=== PATIENT | female | born 1995 | race Caucasian/White ===

== ENCOUNTER → 2016-12-23 | Outpatient (CLI) | payer OTHER ==
[~2016-12-23] MED LIST: FERR325T3 PO; MOTR200T44 PO; PERC5TAB6 PO
--- NOTE | 2016-12-23 14:02 | REP ---
OBSTETRIC SONOGRAPHY: HISTORY: Supervision of for anatomy. FINDINGS: Scanning through the gravid uterus demonstrates a viable single intrauterine gestation in a breech lie. motion is observed and heart rate is recorder 137 beats per minute. An anterior grade 0 placenta is seen without evidence of previa or abruption. Amniotic fluid is subjectively normal. Closed cervical length is 3.5 cm. No extrauterine abnormality is observed. No anomaly is seen. Sagittal visualization of the spine is less than optimally seen today due to position. The following anatomic structures are identified and felt to be sonographically unremarkable: cranium, choroid plexus, cavum, cerebellum and posterior fossa, face and profile, lungs, four-chamber heart with left and right ventricular outflow tract views, diaphragm, left-sided stomach, abdominal wall cord insertion, three-vessel umbilical cord, kidneys and bladder, upper and lower extremities. Biometry Chart: BPD 4.5 cm = 19 weeks 5 days HC 17.1 cm = 19 weeks 5 days AC 14.4 cm = 19 weeks 5 days FL 3.1 cm = 19 weeks 5 days HL 3.0 cm = 19 weeks 6 days HC/AC ratio normal 1.19. Cephalic index normal 0.73. Estimated weight 308 grams, 0 pounds 10 ounces, 57th percentile for 19 weeks 3 days. IMPRESSION: Viable single intrauterine gestation at 19 weeks 5 days by today's composite sonographic criteria. AMEYA by today's sonography May 14, 2017. spine less than completely visualized due to position. Signed by Gunnar Briseno MD 12/23/2016 02:07 P
== END ==
LOC: M RAD 09:46
PROVIDERS: ATTEND Specialist
DX: Z36 Encounter for antenatal screening of mother (principal)

== ENCOUNTER → 2017-01-14 | Outpatient (CLI) | payer OTHER ==
--- NOTE | 2017-01-14 10:55 | REP ---
Clinical: Anatomical evaluation. Comparison: 12/23/2016. Findings: Examination demonstrates a single live intrauterine in cephalic presentation. motion is identified by technologist. Placenta is noted anteriorly and grade one without evidence for placenta previa or abruption; few small placental venous lakes are noted. Amniotic fluid volume is normal. Cervix measures 4.9 cm in length and appears closed. No evidence for nuchal cord. Gestational age by LMP 22 weeks 4 days with AMEYA 05/16/2017 . Gestational age by current measurements 23 weeks 2 days with AMEYA 05/11/2017 . FHR equals 131 beats per minute. Estimated weight 613 grams ( 79th percentile). Anatomical assessment demonstrates normal structures including cranium, choroid plexus, cavum, cerebellum/posterior fossa, facial features, lungs, four-chamber heart/ventricular outflow tracts, diaphragm, stomach, cord insertion/three-vessel cord, kidneys/bladder, spine, and extremities. Impression: 1. Single live intrauterine in cephalic presentation demonstrating appropriate interval growth. 2. In conjunction with prior examination anatomical assessment is complete and normal. Signed by Mc Mujica MD 01/14/2017 10:46 A
== END ==
LOC: M RAD 09:36
PROVIDERS: ATTEND Specialist
DX: Z36 Encounter for antenatal screening of mother (principal)

== ENCOUNTER → 2017-01-29 | Outpatient (REF) | payer OTHER | LOC: M LAB REF 12:54 | PROVIDERS: ATTEND Obstetrics & Gynecology | DX: R30.0 Dysuria (principal) ==

== ENCOUNTER → 2017-02-26 | Outpatient (CLI) | payer OTHER ==
[2017-02-26 13:18] LABS: BASO # 0.1 K/mm3 (0.0-0.2); BASO % 0.6 % (0.0-1.0); EOS # 0.2 K/mm3 (0.0-0.50); EOS % 2.5 % (0.0-3.0); LARGE UNSTAINED CELL # 0.2 K/mm3 (0.0-0.4); LARGE UNSTAINED CELL % 2.1 % (0.0-4.0); LYMPH # 1.8 K/mm3 (1.5-6.5); MEAN CORPUSCULAR HEMOGLOBIN 30.3 pg (27.0-33.0); MEAN CORPUSCULAR HGB CONC 34.2 g/dl (32.0-36.5); MEAN CORPUSCULAR VOLUME 88.6 fl (80.0-96.0); MONO # 0.5 K/mm3 (0.0-0.8); MONO % 5.3 % (0.0-5.0); NEUTROPHILS # 7.2 K/mm3 (1.8-7.7); NEUTROPHILS % 71.5 % (36.0-66.0); PLATELET COUNT, AUTOMATED 175 k/mm3 (150-450); RED CELL DISTRIBUTION WIDTH 13.2 % (11.5-14.5); WHITE BLOOD COUNT 10.1 K/mm3 (4.0-10.0)
== END ==
LOC: M LAB 11:05
PROVIDERS: ATTEND Specialist
DX: Z34.82 Encounter for supervision of other normal pregnancy, second trimester (principal)

== ENCOUNTER 2017-04-14 17:49 | Outpatient (CLI) | payer OTHER ==
[~2017-04-14] VITALS: Ht 160 cm; Wt 65.0 kg
[2017-04-14 18:42] VITALS: BP 115/64
[2017-04-14] MEDS ORDERED: ZOFR20TA PO (18:59)
[2017-04-14] MEDS ORDERED: ZOLO25TA PO (18:59)
[2017-04-14] MEDS ORDERED: PRENTAB9 PO (18:59)
[2017-04-14] MEDS ORDERED: ACET50TA PO (18:59)
[2017-04-14] MEDS ORDERED: ONDANSETRON 4MG/2ML VIAL (J2405) IV PRN (19:15)
[2017-04-14] MEDS ORDERED: D5W/LR 1,000 ML IV SCH (19:15)
[2017-04-14 19:56] VITALS: BP 110/59
[2017-04-14 20:19] LABS: MEAN CORPUSCULAR HEMOGLOBIN 28.6 pg (27.0-33.0); MEAN CORPUSCULAR HGB CONC 33.5 g/dl (32.0-36.5); MEAN CORPUSCULAR VOLUME 85.4 fl (80.0-96.0); RED CELL DISTRIBUTION WIDTH 13.3 % (11.5-14.5); WHITE BLOOD COUNT 9.9 K/mm3 (4.0-10.0)
[2017-04-14 20:30] LABS: ALBUMIN/GLOBULIN RATIO 0.83 (1.00-1.93); ALKALINE PHOSPHATASE 158 U/L (45-117); ALT/SGPT 27 U/L (12-78); ANION GAP 12 MEQ/L (8-16); AST/SGOT 41 U/L (15-37); BILIRUBIN,TOTAL 0.4 MG/DL (0.2-1.0); BLOOD UREA NITROGEN 10 MG/DL (7-18); CALCIUM LEVEL 7.9 MG/DL (8.5-10.1); CARBON DIOXIDE LEVEL 22 MEQ/L (21-32); CHLORIDE LEVEL 102 MEQ/L (98-107); CREATININE FOR GFR 0.51 MG/DL (0.55-1.02); GLOMERULAR FILTRATION RATE > 60.0 (>60); GLUCOSE, FASTING 54 MG/DL (70-105); POTASSIUM SERUM 3.5 MEQ/L (3.5-5.1); SODIUM LEVEL 136 MEQ/L (136-145); TOTAL PROTEIN 6.6 GM/DL (6.4-8.2)
[2017-04-14] MEDS ORDERED: ACETAMINOPHEN 500 MG TAB PO PRN (20:30)
[2017-04-14 21:34] VITALS: BP 106/59
[2017-04-14 22:33] VITALS: BP 103/58
[2017-04-14 23:19] VITALS: BP 107/56
[2017-04-15] VITALS: BP 111/59
[2017-04-15] MEDS ORDERED: ZOFR4TAB3 PO (00:10)
== END 2017-04-15 00:10 | disposition home or self-care (01) ==
LOC: M LDO 17:49
PROVIDERS: ATTEND Obstetrics & Gynecology
DX: O99.89 Other specified diseases and conditions complicating pregnancy, childbirth and the puerperium (principal); Z3A.35 35 weeks gestation of pregnancy; O21.9 Vomiting of pregnancy, unspecified; K52.9 Noninfective gastroenteritis and colitis, unspecified; A08.4 Viral intestinal infection, unspecified; O99.613 Diseases of the digestive system complicating pregnancy, third trimester
CPT/HCPCS: 59025; 80053; 81001; 85027; 87088; J2405

== ENCOUNTER → 2017-04-21 | Outpatient (REF) | payer OTHER ==
[~2017-04-21] MED LIST changes: +ACET50TA PO; +PRENTAB9 PO; +ZOFR20TA PO; +ZOFR4TAB3 PO; +ZOLO25TA PO
== END ==
LOC: M LAB REF 13:09
PROVIDERS: ATTEND Advanced Practice Midwife
DX: Z34.83 Encounter for supervision of other normal pregnancy, third trimester (principal)

== ENCOUNTER 2017-05-12 05:37 | Inpatient (IN) | payer OTHER ==
[~2017-05-12] VITALS: Ht 157.5 cm; Wt 70.0 kg
[2017-05-12] VITALS (10 sets, daily range): BP systolic 106–126; BP diastolic 55–77
[~2017-05-12 05:37] MED LIST changes: +TYLE325C PO; +VALA500T PO
[2017-05-12] MEDS ORDERED: LR 1,000 ML IV ONE (07:30)
[2017-05-12] MEDS ORDERED: LR 1,000 ML IV SCH (07:30)
[2017-05-12] MEDS ORDERED: BICITRA 30ML SOLN UDC PO ONE (07:30)
[2017-05-12 07:32] LABS: MEAN CORPUSCULAR HEMOGLOBIN 26.6 pg (27.0-33.0); MEAN CORPUSCULAR HGB CONC 31.9 g/dl (32.0-36.5); MEAN CORPUSCULAR VOLUME 83.4 fl (80.0-96.0); RED CELL DISTRIBUTION WIDTH 14.1 % (11.5-14.5); WHITE BLOOD COUNT 10.4 K/mm3 (4.0-10.0)
[2017-05-12] MEDS ORDERED: PHENYLephrine HCL 500 MCG/5 ML (100MCG/ML) SYRINGE (J2370) As Ordered ONE ×2 (08:03→08:32)
[2017-05-12] MEDS ORDERED: ePHEDrine SULFATE 25 MG/5 ML(5MG/ML) SYRINGE As Ordered ONE ×2 (08:03→08:31)
[2017-05-12] MEDS ORDERED: ONDANSETRON 4MG/2ML VIAL (J2405) As Ordered ONE (08:03)
[2017-05-12] MEDS ORDERED: MORPHINE PRES-FREE INJ 10 MG/10 ML VIAL (J2274) As Ordered ONE (08:03)
[2017-05-12] MEDS ORDERED: NALOXONE INJ 0.4 MG/1 ML VIAL (J2310) IV PRN ×2 (08:19)
[2017-05-12] MEDS ORDERED: NALBUPHINE HCL 10 MG/ML AMP (J2300) IV PRN (08:19)
[2017-05-12] MEDS ORDERED: ONDANSETRON 4MG/2ML VIAL (J2405) IV PRN ×3 (08:19→09:45)
[2017-05-12] MEDS ORDERED: METOCLOPRAMIDE INJ 10MG/2ML VIAL (J2765) IV PRN (08:19)
[2017-05-12] MEDS ORDERED: MIDAZOLAM INJ 2 MG/2 ML VIAL (J2250) As Ordered ONE (08:23)
[2017-05-12] MEDS ORDERED: KETOROLAC 60 MG/2 ML VIAL (J1885) As Ordered ONE (08:37)
[2017-05-12] MEDS ORDERED: OXYTOCIN INJ 10 UNITS/ML VIAL (J2590) As Ordered ONE (08:49)
[2017-05-12] MEDS ORDERED: PROMETHAZINE 25 MG TAB PO PRN (09:00)
[2017-05-12] MEDS ORDERED: MEASLES,MUMPS,RUBELLA VACCINE INJ (MMR-II) (90707) SC SCH (09:00)
[2017-05-12] MEDS: PRENATAL VITAMIN TAB PO SCH (09:00)
[2017-05-12] MEDS: DOCUSATE SODIUM 100 MG CAP PO SCH ×2 (09:00→21:17)
[2017-05-12] MEDS ORDERED: RHOGAM 300 MCG (1500 IU) INJ (J2790) IM SCH (09:00)
--- NOTE | 2017-05-12 09:44 | RO ---
DATE OF PROCEDURE: 05/12/2017 PREPROCEDURE DIAGNOSES: 1. History of prior section for an elective repeat section. 2. Intrauterine at 39 plus weeks. 3. Satisfied parity with undesired fertility. POSTPROCEDURE DIAGNOSES: 1. History of prior section for an elective repeat section. 2. Intrauterine at 39 plus weeks. 3. Satisfied parity with undesired fertility. PROCEDURE: Repeat section with bilateral tubal ligation using Wedron method. SURGEON: Dr. Jie Brown CUFF SETTER LOCKSTITCH: Mk Moore DO ANESTHESIA: Spinal. ESTIMATED BLOOD LOSS: 500 mL. INTRAVENOUS FLUIDS: 2 liter of lactated ringer solution. URINE OUTPUT: 200 mL. PREOPERATIVE ANTIBIOTICS: 2 grams of Ancef. OPERATIVE FINDINGS: Live born male , 9 and 10, weight 8 pounds 5 ounces, 3772 grams. SPECIMENS: Cord blood and bilateral segments of fallopian tube. DESCRIPTION OF OPERATION: After informed consent was obtained and written content was reviewed, the patient was brought to the operating room where spinal anesthesia was placed. She was then placed in the supine position with a left lateral tilt. A Hdz catheter was placed and set to gravity. She was then prepped and draped in a normal sterile fashion. A time out in the operating room was then performed identifying the patient, the procedure to be performed, as well as drug allergies. Anesthesia was tested and deemed to be adequate. The previous Pfannenstiel skin incision was then excised. This was further carried down to the underlying rectus fascia. The fascia was then scored and this incision was extended bilaterally. The fascia was then dissected off the underlying rectus muscles superiorly and inferiorly. The rectus muscles were . The peritoneum was then entered sharply. The vesicouterine peritoneum was then identified. It was tented and excised to create a bladder flap. The bladder blade was then placed to retract back the bladder. A curvilinear incision was then made in the lower uterine segment. Amniotomy was then performed productive of clear fluid. This incision was extended manually. The head was then brought to the level of the incision and was delivered atraumatically followed by delivery of shoulder and corpus. The cord was clamped times two and was cut. The infant was brought over to the warmer with a good cry. The placenta was then delivered grossly intact. The uterus was then exteriorized and cleared of all clots and debris. The uterine incision was then closed in two layers using #0 Vicryl. The first layer in a running locking fashion followed by second layer of imbrication in a running nonlocking fashion. Several [id number] stitch were placed for hemostasis. Wedron tubal ligation was then performed. The right fallopian tube was placed in traction. A window was created in the mesosalpinx using cautery. This area was doubly ligated using #3-0 Chromic. This segment of fallopian tube was then excised with good hemostasis noted. In a similar fashion, the left fallopian tube was placed in traction. A window was created in the mesosalpinx and this area was doubly ligated with #3-0 Chromic and was excised with good hemostasis noted. The uterus was then returned to the patient's abdomen. Surgical sites inspected and noted to be hemostatic. The anterior peritoneum was then reapproximated using #3-0 Vicryl. The rectus muscles were reapproximated using #3-0 Vicryl. The fascia was then closed using #0 Vicryl in a running nonlocking fashion. Several subdermal stitches were placed using #3-0 Vicryl and the skin was closed with #4-0 Monocryl in a subcuticular fashion. The incision was then cleaned and dried. Mastisol was applied above and below the incision. Steri-Strips were applied over the incision. The incision was dressed. The patient was then taken to recovery in stable condition. Counts were correct. MTDD
[2017-05-12] MEDS ORDERED: diphenhydrAMINE INJ 50MG/ML VIAL (J1200) IV PRN (09:45)
[2017-05-12] MEDS ORDERED: fentaNYL 100 MCG/2 ML INJECTION (J3010) IV PRN (09:45)
[2017-05-12 12:35] LABS: MEAN CORPUSCULAR HEMOGLOBIN 27.8 pg (27.0-33.0); RED CELL DISTRIBUTION WIDTH 14.1 % (11.5-14.5); WHITE BLOOD COUNT 17.5 K/mm3 (4.0-10.0)
[2017-05-12] MEDS: KETOROLAC 30 MG/ML VIAL (J1885) IV SCH ×2 (15:15→21:18)
[2017-05-12] MEDS: PERCOCET 5MG/325MG TAB PO PRN ×2 (15:16→19:31)
[2017-05-12] MEDS: LR 1,000 ML IV SCH (19:30)
[2017-05-13] MEDS: LR 1,000 ML IV SCH ×2 (00:53→08:53)
[2017-05-13] MEDS: PERCOCET 5MG/325MG TAB PO PRN ×5 (01:56→23:16)
[2017-05-13 02:17] VITALS: BP 106/62
[2017-05-13] MEDS: KETOROLAC 30 MG/ML VIAL (J1885) IV SCH ×2 (03:49→09:13)
[2017-05-13 06:32] VITALS: BP 110/57
[2017-05-13 07:07] LABS: MEAN CORPUSCULAR HEMOGLOBIN 27.5 pg (27.0-33.0); MEAN CORPUSCULAR HGB CONC 33.2 g/dl (32.0-36.5); MEAN CORPUSCULAR VOLUME 82.8 fl (80.0-96.0); RED CELL DISTRIBUTION WIDTH 14.2 % (11.5-14.5); WHITE BLOOD COUNT 12.9 K/mm3 (4.0-10.0)
[2017-05-13] MEDS: SERTRALINE HCL 25 MG TABLET PO SCH (08:23)
[2017-05-13] MEDS: DOCUSATE SODIUM 100 MG CAP PO SCH ×2 (08:24→20:06)
[2017-05-13] MEDS: PRENATAL VITAMIN TAB PO SCH (08:24)
[2017-05-13] MEDS ORDERED: SERTRALINE HCL 25 MG TABLET PO SCH (09:00)
[2017-05-13 10:09] VITALS: BP 106/56
[2017-05-13] MEDS: IBUPROFEN 800 MG TAB PO SCH (16:46)
[2017-05-13 18:00] VITALS: BP 113/55
[2017-05-13 21:32] VITALS: BP 113/55
[2017-05-13 22:24] VITALS: BP 125/65
[2017-05-14] MEDS: IBUPROFEN 800 MG TAB PO SCH ×2 (00:36→08:35)
[2017-05-14] MEDS: PERCOCET 5MG/325MG TAB PO PRN ×3 (04:39→14:31)
[2017-05-14 06:03] VITALS: BP 116/59
[2017-05-14] MEDS: DOCUSATE SODIUM 100 MG CAP PO SCH (08:34)
[2017-05-14] MEDS: PRENATAL VITAMIN TAB PO SCH (08:35)
[2017-05-14] MEDS: SERTRALINE HCL 25 MG TABLET PO SCH (08:36)
[2017-05-14 14:00] VITALS: BP 119/78
[2017-05-14] MEDS ORDERED: FIORICET TAB PO PRN (14:00)
[2017-05-14] MEDS ORDERED: IBUP-1114 PO (15:38)
[2017-05-14] MEDS ORDERED: OXYC1TAB23 PO (15:39)
== END 2017-05-14 16:20 | disposition home or self-care (01) | DRG 540 ==
LOC: M LDI 05:37 → M OBS 10:56
PROVIDERS: ADMIT Obstetrics & Gynecology; ATTEND Obstetrics & Gynecology
PROC: 0UB70ZZ Excision of Bilateral Fallopian Tubes, Open Approach (ICD-10-PCS; 2017-05-12)
PROC: 10D00Z1 Extraction of Products of Conception, Low, Open Approach (ICD-10-PCS; principal; 2017-05-12 07:30)
DX: O34.211 Maternal care for low transverse scar from previous cesarean delivery (principal); Z30.2 Encounter for sterilization; Z37.0 Single live birth; Z3A.39 39 weeks gestation of pregnancy; Z79.899 Other long term (current) drug therapy

== ENCOUNTER → 2018-01-27 | Outpatient (REF) | payer OTHER | LOC: M LAB REF 18:34 | DX: Z12.4 Encounter for screening for malignant neoplasm of cervix (principal) ==

== ENCOUNTER → 2018-10-05 | Outpatient (CLI) | payer OTHER ==
[2018-10-05 11:11] LABS: BASO # 0.1 10^3/uL (0.0-0.2); EOS # 0.3 10^3/uL (0.0-0.50); EOS % 4.4 % (0.0-3.0); HEMATOCRIT 38.5 % (36.0-47.0); HEMOGLOBIN 13.1 g/dl (12.0-15.5); IMMATURE GRANULOCYTE % 0.3 % (0-3.0); LYMPH # 1.8 10^3/uL (1.5-6.5); LYMPH % 29.4 % (24.0-44.0); MEAN CORPUSCULAR HEMOGLOBIN 28.7 pg (27.0-33.0); MEAN CORPUSCULAR VOLUME 84.4 fl (80.0-96.0); MONO # 0.6 10^3/uL (0.0-0.8); NEUTROPHILS # 3.4 10^3/uL (1.8-7.7); NEUTROPHILS % 55.9 % (36.0-66.0); PLATELET COUNT, AUTOMATED 206 10^3/uL (150-450); RED BLOOD COUNT 4.56 10^6/uL (4.00-5.40); RED CELL DISTRIBUTION WIDTH 12.5 % (11.5-14.5); WHITE BLOOD COUNT 6.1 10^3/uL (4.0-10.0)
[2018-10-05 13:06] LABS: ANION GAP 12 MEQ/L (8-16); BLOOD UREA NITROGEN 19 MG/DL (7-18); CALCIUM LEVEL 9.1 MG/DL (8.5-10.1); CARBON DIOXIDE LEVEL 22 MEQ/L (21-32); CHLORIDE LEVEL 105 MEQ/L (98-107); CREATININE FOR GFR 0.86 MG/DL (0.55-1.30); FREE T4 0.97 NG/DL (0.76-1.46); GLOMERULAR FILTRATION RATE > 60.0 (>60); GLUCOSE, FASTING 76 MG/DL (70-100); POTASSIUM SERUM 4.1 MEQ/L (3.5-5.1); SODIUM LEVEL 139 MEQ/L (136-145)
== END ==
LOC: M LAB 10:15
DX: R53.82 Chronic fatigue, unspecified (principal); R42 Dizziness and giddiness
CPT/HCPCS: 84443

== ENCOUNTER → 2018-11-04 | Outpatient (CLI) | payer OTHER ==
[2018-11-04 18:33] LABS: BASO # 0.1 10^3/uL (0.0-0.2); BASO % 0.5 % (0.0-1.0); EOS # 0.3 10^3/uL (0.0-0.50); EOS % 3.2 % (0.0-3.0); HEMATOCRIT 37.4 % (36.0-47.0); HEMOGLOBIN 12.6 g/dl (12.0-15.5); IMMATURE GRANULOCYTE % 0.3 % (0-3.0); LYMPH # 2.4 10^3/uL (1.5-6.5); LYMPH % 25.2 % (24.0-44.0); MEAN CORPUSCULAR HEMOGLOBIN 28.4 pg (27.0-33.0); MEAN CORPUSCULAR HGB CONC 33.7 g/dl (32.0-36.5); MEAN CORPUSCULAR VOLUME 84.2 fl (80.0-96.0); MONO # 0.7 10^3/uL (0.0-0.8); MONO % 7.4 % (0.0-5.0); NEUTROPHILS % 63.4 % (36.0-66.0); PLATELET COUNT, AUTOMATED 208 10^3/uL (150-450); RED BLOOD COUNT 4.44 10^6/uL (4.00-5.40); RED CELL DISTRIBUTION WIDTH 12.8 % (11.5-14.5); WHITE BLOOD COUNT 9.6 10^3/uL (4.0-10.0)
[2018-11-04 18:55] LABS: ALBUMIN 4.7 GM/DL (3.2-5.2); ALBUMIN/GLOBULIN RATIO 1.74 (1.00-1.93); ALKALINE PHOSPHATASE 51 U/L (45-117); ALT/SGPT 17 U/L (12-78); ANION GAP 5 MEQ/L (8-16); AST/SGOT 16 U/L (7-37); BILIRUBIN,TOTAL 0.5 MG/DL (0.2-1.0); BLOOD UREA NITROGEN 20 MG/DL (7-18); CALCIUM LEVEL 9.1 MG/DL (8.5-10.1); CARBON DIOXIDE LEVEL 28 MEQ/L (21-32); CHLORIDE LEVEL 104 MEQ/L (98-107); CREATININE FOR GFR 0.82 MG/DL (0.55-1.30); GLOMERULAR FILTRATION RATE > 60.0 (>60); GLUCOSE, FASTING 93 MG/DL (70-100); POTASSIUM SERUM 4.4 MEQ/L (3.5-5.1); SODIUM LEVEL 137 MEQ/L (136-145); TOTAL PROTEIN 7.4 GM/DL (6.4-8.2)
== END ==
LOC: M LAB 17:58
DX: R00.1 Bradycardia, unspecified (principal)
CPT/HCPCS: 80053

== ENCOUNTER → 2018-11-16 | Outpatient (REF) | payer OTHER ==
[~2018-11-16] MED LIST changes: -ACET50TA PO; +IBUP-1114 PO; +MAPA500T17 PO; +OXYC1TAB23 PO; +PERC5TAB12 PO; -PERC5TAB6 PO; -VALA500T PO; +VALA500T4 PO; -ZOFR20TA PO; +ZOFR4TAB14 PO; +ZOFR4TAB16 PO; -ZOFR4TAB3 PO
[2018-11-16 13:54] LABS: BLOOD UREA NITROGEN 14 MG/DL (7-18); CALCIUM LEVEL 8.9 MG/DL (8.5-10.1); CARBON DIOXIDE LEVEL 28 MEQ/L (21-32); CHLORIDE LEVEL 107 MEQ/L (98-107); CREATININE FOR GFR 0.87 MG/DL (0.55-1.30); GLOMERULAR FILTRATION RATE > 60.0 (>60); GLUCOSE, FASTING 88 MG/DL (70-100); MAGNESIUM LEVEL 2.2 MG/DL (1.8-2.4); POTASSIUM SERUM 4.2 MEQ/L (3.5-5.1); SODIUM LEVEL 140 MEQ/L (136-145)
== END ==
LOC: M SFHCLERA 11:27
PROVIDERS: ATTEND Family Medicine
DX: R94.31 Abnormal electrocardiogram [ECG] [EKG] (principal)

== ENCOUNTER 2018-12-29 13:23 | Emergency (ER) | payer OTHER ==
[~2018-12-29] VITALS: Ht 160 cm; Wt 58.2 kg
[~2018-12-29 13:23] MED LIST changes: -MAPA500T17 PO; +MAPA500T2 PO; -VALA500T4 PO; +VALA500T5 PO
[2018-12-29] MEDS ORDERED: ASPIRIN 81 MG CHEW TABLET PO ONE (14:00)
[2018-12-29 14:15] LABS: BASO # 0.1 10^3/uL (0.0-0.2); BASO % 0.9 % (0.0-1.0); EOS # 0.3 10^3/uL (0.0-0.50); EOS % 4.6 % (0.0-3.0); HEMATOCRIT 38.5 % (36.0-47.0); HEMOGLOBIN 12.8 g/dl (12.0-15.5); LYMPH # 2.2 10^3/uL (1.5-6.5); LYMPH % 33.1 % (24.0-44.0); MEAN CORPUSCULAR HEMOGLOBIN 28.6 pg (27.0-33.0); MEAN CORPUSCULAR HGB CONC 33.2 g/dl (32.0-36.5); MEAN CORPUSCULAR VOLUME 85.9 fl (80.0-96.0); MONO # 0.7 10^3/uL (0.0-0.8); MONO % 10.3 % (0.0-5.0); NEUTROPHILS # 3.4 10^3/uL (1.8-7.7); NEUTROPHILS % 50.5 % (36.0-66.0); PLATELET COUNT, AUTOMATED 218 10^3/uL (150-450); RED BLOOD COUNT 4.48 10^6/uL (4.00-5.40); WHITE BLOOD COUNT 6.7 10^3/uL (4.0-10.0)
--- NOTE | 2018-12-29 14:20 | REP ---
Clinical: Acute chest pain . Comparison: 06/06/2013 Findings: The mediastinum and cardiac silhouette are stable and within normal limits for portable technique. The lung anderson are clear without acute consolidation, effusion, or pneumothorax. Skeletal structures are intact. Impression: No acute cardiopulmonary process appreciated. Electronically Signed by Mc Mujica MD 12/29/2018 02:11 P
[2018-12-29 14:28] LABS: INR 0.99; PROTHROMBIN TIME 13.1 SECONDS (12.1-14.4)
[2018-12-29 14:52] LABS: ALBUMIN 4.2 GM/DL (3.2-5.2); ALT/SGPT 17 U/L (12-78); BILIRUBIN,DIRECT 0.1 MG/DL (0.0-0.2); BILIRUBIN,TOTAL 0.5 MG/DL (0.2-1.0); BLOOD UREA NITROGEN 12 MG/DL (7-18); CALCIUM LEVEL 8.8 MG/DL (8.5-10.1); CARBON DIOXIDE LEVEL 26 MEQ/L (21-32); CHLORIDE LEVEL 108 MEQ/L (98-107); CPK CREATINE PHOSPHOKINASE 117 U/L (26-192); CREATININE FOR GFR 0.72 MG/DL (0.55-1.30); FREE T4 0.93 NG/DL (0.76-1.46); GLOMERULAR FILTRATION RATE > 60.0 (>60); GLUCOSE, FASTING 78 MG/DL (70-100); MB/CK RELATIVE INDEX 1.11 (< OR =4); SODIUM LEVEL 139 MEQ/L (136-145); TOTAL PROTEIN 7.6 GM/DL (6.4-8.2); TROPONIN I < 0.02 NG/ML (< 0.10)
[2018-12-29] MEDS ORDERED: FLECAINIDE 50MG TABLET PO ONE (15:30)
[2018-12-29 17:00] VITALS: BP 103/66
[2018-12-29] MEDS ORDERED: FLEC50HA PO (17:06)
--- NOTE | 2018-12-30 10:17 | ECGEPIP ---
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
== END 2018-12-29 17:26 | disposition home or self-care (01) ==
LOC: M ED 13:23
DX: I49.3 Ventricular premature depolarization (principal); I51.9 Heart disease, unspecified

== ENCOUNTER → 2019-02-22 | Outpatient (REF) | payer OTHER ==
[~2019-02-22] MED LIST changes: +FLEC50HA PO
== END ==
LOC: M LAB REF 17:07
PROVIDERS: ATTEND Advanced Practice Midwife
DX: N94.10 Unspecified dyspareunia (principal)

== ENCOUNTER → 2019-02-22 | Outpatient (REF) | payer OTHER ==
[2019-02-22 20:58] LABS: CHLAMYDIA DNA AMPLIFICATION NEGATIVE (NEGATIVE); GC DNA AMPLIFICATION NEGATIVE (NEGATIVE)
== END ==
LOC: M LAB REF 17:12
PROVIDERS: ATTEND Advanced Practice Midwife
DX: Z11.3 Encounter for screening for infections with a predominantly sexual mode of transmission (principal)

== ENCOUNTER → 2019-03-09 | Outpatient (REF) | payer OTHER ==
[2019-03-09 13:32] LABS: HCG, SERUM QUALITATIVE NEGATIVE (NEGATIVE)
== END ==
LOC: M LAB REF 12:45
PROVIDERS: ATTEND Physician Assistant
DX: N93.9 Abnormal uterine and vaginal bleeding, unspecified (principal)

== ENCOUNTER → 2019-03-22 | Outpatient (CLI) | payer OTHER ==
--- NOTE | 2019-03-23 07:37 | REP ---
PELVIC ULTRASOUND: Real-time sonographic evaluation of the pelvis is performed utilizing transabdominal and endovaginal technique. Bladder measures 8.7 x 5.9 x 10.0 cm. Uterus measures 10.4 x 4.6 x 5.9 cm. Endometrial thickness is 6 mm. There is no endometrial fluid collection. Right ovary measures 3.5 x 2.1 x 1.9 cm and left ovary 2.2 x 1.5 x 2.8 cm. Complex follicle in the left ovary measures 1.3 cm maximally. There is no torsion bilaterally, RI right ovary 0.42 and left ovary 0.45. Trace physiologic amount of free fluid is seen. scar is incidentally noted. IMPRESSION: Essentially unremarkable pelvic ultrasound as above. Electronically Signed by Constantine Chambers MD 03/23/2019 10:35 A
== END ==
LOC: M RAD 15:26
PROVIDERS: ATTEND Advanced Practice Midwife
DX: N94.10 Unspecified dyspareunia (principal)

== ENCOUNTER → 2019-04-05 | Outpatient (REF) | payer OTHER ==
[2019-04-05 20:25] LABS: CHLAMYDIA DNA AMPLIFICATION NEGATIVE (NEGATIVE); GC DNA AMPLIFICATION NEGATIVE (NEGATIVE)
== END ==
LOC: M SFHCLERA 15:08
PROVIDERS: ATTEND Family Medicine
DX: R30.0 Dysuria (principal)

== ENCOUNTER 2020-06-27 13:20 | Emergency (ER) | payer OTHER ==
[2020-06-27] MEDS ORDERED: ASPIRIN 81 MG CHEW TABLET As Ordered ONE (13:39)
[2020-06-27] MEDS ORDERED: IBUPROFEN 600MG TAB As Ordered ONE (16:35)
[2020-08-05 08:50] LABS: INR 1.02; PROTHROMBIN TIME 13.6 SECONDS (11.8-14.0)
[2020-08-05 09:07] LABS: BASO # 0.1 10^3/uL (0.0-0.2); EOS # 0.2 10^3/uL (0.0-0.5); EOS % 3.9 % (0.0-3.0); HEMATOCRIT 38.2 % (36.0-47.0); HEMOGLOBIN 12.6 g/dl (12.0-15.5); LYMPH # 1.9 10^3/uL (1.5-5.0); LYMPH % 36.4 % (24.0-44.0); MEAN CORPUSCULAR HEMOGLOBIN 28.4 pg (27.0-33.0); MEAN CORPUSCULAR VOLUME 86.2 fl (80.0-96.0); MONO # 0.6 10^3/uL (0.0-0.8); NEUTROPHILS # 2.4 10^3/uL (1.5-8.5); NEUTROPHILS % 47.1 % (36.0-66.0); PLATELET COUNT, AUTOMATED 208 10^3/uL (150-450); RED BLOOD COUNT 4.43 10^6/uL (4.00-5.40); WHITE BLOOD COUNT 5.1 10^3/uL (4.0-10.0)
[2020-08-06 21:42] LABS: BLOOD UREA NITROGEN 14 MG/DL (7-18); CARBON DIOXIDE LEVEL 29 MEQ/L (21-32); CHLORIDE LEVEL 107 MEQ/L (98-107); CREATININE FOR GFR 0.89 MG/DL (0.55-1.30); GLOMERULAR FILTRATION RATE > 60.0 (>60); GLUCOSE, FASTING 79 MG/DL (70-100); POTASSIUM SERUM 3.8 MEQ/L (3.5-5.1); SODIUM LEVEL 140 MEQ/L (136-145); TROPONIN I < 0.02 NG/ML (< 0.10)
--- NOTE | 2020-08-16 14:14 | ECGEPIP ---
SINUS RHYTHM MODERATE T-WAVE ABNORMALITY, CONSIDER ANTERIOR ISCHEMIA, CLINICAL CORRELATE ABNORMAL ECG INTERPRETATION BASED ON A DEFAULT AGE OF 40 YEARS NO OLD AVAILABLE SEE SCANNED DOWNTIME REPORT MTDD
== END 2020-06-27 17:45 | disposition home or self-care (01) ==
LOC: M ED 13:20
DX: R07.89 Other chest pain (principal); I51.9 Heart disease, unspecified; Z79.899 Other long term (current) drug therapy

== ENCOUNTER → 2021-02-28 | Outpatient (REF) | payer OTHER ==
[2021-02-28 19:19] LABS: CHLAMYDIA DNA AMPLIFICATION NEGATIVE (NEGATIVE); GC DNA AMPLIFICATION NEGATIVE (NEGATIVE)
== END ==
LOC: M SFHCWAGY 16:45
PROVIDERS: ATTEND Nurse Practitioner Women's Health
DX: Z12.4 Encounter for screening for malignant neoplasm of cervix (principal); Z11.3 Encounter for screening for infections with a predominantly sexual mode of transmission

== ENCOUNTER → 2021-05-24 | Outpatient (CLI) | payer OTHER ==
--- NOTE | 2021-05-24 12:00 | REP ---
INDICATION: SPRAIN COMPARISON: 08/24/2006 TECHNIQUE: Five views FINDINGS: The compartments are symmetric and well maintained. The are unchanged from the prior exam. There is no acute fracture, dislocation, or subluxation. IMPRESSION: Within normal limits <Electronically signed by Matthew Bryant > 05/24/21 1152
== END ==
LOC: M WUC 10:46
PROVIDERS: ATTEND Physician Assistant
DX: S83.421A Sprain of lateral collateral ligament of right knee, initial encounter (principal); X58.XXXA Exposure to other specified factors, initial encounter; Y92.89 Other specified places as the place of occurrence of the external cause; Y93.9 Activity, unspecified; Y99.9 Unspecified external cause status

== ENCOUNTER → 2021-08-14 | Outpatient (REF) | payer OTHER | LOC: M LAB REF 16:58 | PROVIDERS: ATTEND Physician Assistant Medical | DX: R50.9 Fever, unspecified (principal); R53.83 Other fatigue ==

== ENCOUNTER → 2021-08-23 | Outpatient (CLI) | payer OTHER ==
--- NOTE | 2021-08-23 13:53 | REP ---
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 COMPARISON: None. TECHNIQUE: Four views of the thoracic spine. FINDINGS: Thoracic vertebral body heights are preserved. Alignment is normal. Disc spaces are maintained. Pedicles and posterior elements are intact. There is no paravertebral soft tissue mass or hematoma seen. The visualized ribs and lung anderson are unremarkable. Swimmer's lateral view shows no additional abnormality. IMPRESSION: Negative thoracic spine radiographs. <Electronically signed by Dallin Briseno > 08/23/21 1963
[2021-08-23 15:23] LABS: BASO # 0.1 10^3/uL (0.0-0.2); BASO % 0.6 % (0.0-1.0); EOS # 0.2 10^3/uL (0.0-0.5); EOS % 2.1 % (0.0-3.0); HEMATOCRIT 39.9 % (36.0-47.0); HEMOGLOBIN 13.4 g/dl (12.0-15.5); LYMPH # 2.7 10^3/uL (1.5-5.0); LYMPH % 28.2 % (24.0-44.0); MEAN CORPUSCULAR HEMOGLOBIN 29.2 pg (27.0-33.0); MEAN CORPUSCULAR HGB CONC 33.6 g/dl (32.0-36.5); MEAN CORPUSCULAR VOLUME 86.9 fl (80.0-96.0); MONO # 0.7 10^3/uL (0.0-0.8); MONO % 7.1 % (2.0-8.0); NEUTROPHILS % 61.5 % (36.0-66.0); PLATELET COUNT, AUTOMATED 248 10^3/uL (150-450); RED BLOOD COUNT 4.59 10^6/uL (4.00-5.40); WHITE BLOOD COUNT 9.7 10^3/uL (4.0-10.0)
[2021-08-23 16:07] LABS: ALBUMIN 4.6 GM/DL (3.2-5.2); ALT/SGPT 16 U/L (12-78); BILIRUBIN,TOTAL 0.6 MG/DL (0.2-1.0); BLOOD UREA NITROGEN 13 MG/DL (7-18); CALCIUM LEVEL 9.3 MG/DL (8.5-10.1); CARBON DIOXIDE LEVEL 25 MEQ/L (21-32); CHLORIDE LEVEL 104 MEQ/L (98-107); CHOLESTEROL LEVEL 126 MG/DL (<200); CHOLESTEROL RISK RATIO 2.863 (<5); CREATININE FOR GFR 0.78 MG/DL (0.55-1.30); FERRITIN 64 NG/ML (8-252); FREE T4 1.04 NG/DL (0.76-1.46); GLOMERULAR FILTRATION RATE > 60.0 (>60); GLUCOSE, FASTING 91 MG/DL (70-100); HDL CHOLESTEROL 44 MG/DL (>40); IRON (FE) 67 UG/DL (50-170); LDL CHOLESTEROL 70 MG/DL (<100); NON-HDL-C 82 MG/DL; PERCENT SATURATION 21.1 % (13.2-45.0); POTASSIUM SERUM 3.9 MEQ/L (3.5-5.1); SODIUM LEVEL 138 MEQ/L (136-145); THYROGLOBULIN ANTIBODY < 15.0 U/ML (<60.0); THYROID PEROXIDASE ANTIBODY < 28.0 U/ML (<60.0); THYROID STIMULATING HORMONE 0.965 uIU/ML (0.358-3.740); TOTAL IRON BINDING CAPACITY 318 UG/DL (250-450); TOTAL PROTEIN 7.9 GM/DL (6.4-8.2); TRIGLYCERIDES LEVEL 61 MG/DL (<150)
== END ==
LOC: M PLAIMG 13:21 → M PLALAB 13:21
PROVIDERS: ATTEND Family Medicine
DX: M47.814 Spondylosis without myelopathy or radiculopathy, thoracic region (principal); K21.9 Gastro-esophageal reflux disease without esophagitis; G56.03 Carpal tunnel syndrome, bilateral upper limbs; R55 Syncope and collapse

== ENCOUNTER → 2021-08-28 | Outpatient (CLI) | payer OTHER | LOC: M EKG 09:52 | PROVIDERS: ATTEND Family Medicine | DX: R55 Syncope and collapse (principal); I49.9 Cardiac arrhythmia, unspecified; Z98.890 Other specified postprocedural states ==

== ENCOUNTER → 2021-11-06 | Outpatient (REF) | payer OTHER | LOC: M LAB REF 20:47 | PROVIDERS: ATTEND Physician Assistant | DX: R50.9 Fever, unspecified (principal) ==

== ENCOUNTER → 2021-12-03 | Outpatient (CLI) | payer OTHER ==
--- NOTE | 2021-12-03 12:44 | REP ---
INDICATION: PELVIC PAIN. COMPARISON: 03/22/2019 TECHNIQUE: Transvesical and transvaginal imaging FINDINGS: The uterus measures 8.8 x 6.9 x 4.6 cm. The parenchymal echo pattern is unchanged. There are no masses. The endometrial echo complex is unremarkable in appearance measuring 7 mm in its greatest thickness. The right ovary measures 3.2 x 2.7 x 2 cm and is within normal limits with an RI 0.59. A less than 2 cm sized dominant follicle is identified. The left ovary measures 1.8 x 1.1 x 1.8 cm and is within normal limits with an RI 0.48. Urinary bladder measures 7 x 3 x 7 cm IMPRESSION: Within normal limits <Electronically signed by Matthew Bryant > 12/03/21 [id number]
== END ==
LOC: M WHC 10:46
PROVIDERS: ATTEND Nurse Practitioner Women's Health
DX: R10.2 Pelvic and perineal pain (principal)

== ENCOUNTER → 2022-01-29 | Outpatient (CLI) | payer OTHER | LOC: M PLAIMG 15:15 | PROVIDERS: ATTEND Family Medicine | DX: S83.206A Unspecified tear of unspecified meniscus, current injury, right knee, initial encounter (principal); X58.XXXA Exposure to other specified factors, initial encounter; Y92.9 Unspecified place or not applicable; Y93.9 Activity, unspecified; Y99.9 Unspecified external cause status ==

== ENCOUNTER → 2022-03-03 | Outpatient (CLI) | payer OTHER ==
[2022-03-03 16:33] LABS: C REACTIVE PROTEIN QUANTITATIV < 0.30 MG/DL (0.00-0.30); COMPLEMENT C3 86 MG/DL (90-180); COMPLEMENT C4 20 MG/DL (10-40); RHEUMATOID FACTOR QUANT < 10.0 IU/ML (<15.0)
== END ==
LOC: M WUC 11:26
PROVIDERS: ATTEND Family Medicine
DX: S83.206A Unspecified tear of unspecified meniscus, current injury, right knee, initial encounter (principal); M65.9 Synovitis and tenosynovitis, unspecified; Y92.89 Other specified places as the place of occurrence of the external cause; X58.XXXA Exposure to other specified factors, initial encounter; Y93.9 Activity, unspecified; Y99.9 Unspecified external cause status

== ENCOUNTER → 2022-03-27 | Outpatient (REF) | payer OTHER | LOC: M LAB REF 22:07 | PROVIDERS: ATTEND Physician Assistant | DX: R50.9 Fever, unspecified (principal) ==

== ENCOUNTER → 2022-04-08 | Outpatient (CLI) | payer OTHER ==
[2022-04-08 17:58] LABS: BASO # 0.1 10^3/uL (0.0-0.2); BASO % 0.6 % (0.0-1.0); EOS # 0.3 10^3/uL (0.0-0.5); EOS % 3.4 % (0.0-3.0); HEMOGLOBIN 12.6 g/dl (12.0-15.5); LYMPH # 2.2 10^3/uL (1.5-5.0); LYMPH % 27.8 % (24.0-44.0); MEAN CORPUSCULAR HGB CONC 33.2 g/dl (32.0-36.5); MEAN CORPUSCULAR VOLUME 87.6 fl (80.0-96.0); MONO # 0.6 10^3/uL (0.0-0.8); MONO % 7.4 % (2.0-8.0); NEUTROPHILS # 4.8 10^3/uL (1.5-8.5); NEUTROPHILS % 60.3 % (36.0-66.0); PLATELET COUNT, AUTOMATED 314 10^3/uL (150-450); RED BLOOD COUNT 4.34 10^6/uL (4.00-5.40); WHITE BLOOD COUNT 7.9 10^3/uL (4.0-10.0)
[2022-04-08 18:21] LABS: COMPLEMENT C3 93 MG/DL (90-180); COMPLEMENT C4 19 MG/DL (10-40); TOTAL PROTEIN,RANDOM URINE 8.2 MG/DL (0.0-12.0)
== END ==
LOC: M PLAIMG 15:08
PROVIDERS: ATTEND Family Medicine
DX: R76.8 Other specified abnormal immunological findings in serum (principal)

== ENCOUNTER 2022-05-19 19:32 | Emergency (ER) | payer OTHER ==
[~2022-05-19] VITALS: Ht 160 cm; Wt 62.3 kg
[2022-05-19 19:33] VITALS: BP 122/65
[2022-05-19] MEDS ORDERED: PANT40TA29 (19:45)
[2022-05-19] MEDS ORDERED: CELE1CAP9 (19:45)
[2022-05-19 20:47] LABS: BASO # 0.1 10^3/uL (0.0-0.2); BASO % 0.5 % (0.0-1.0); EOS # 0.3 10^3/uL (0.0-0.5); EOS % 3.1 % (0.0-3.0); HEMATOCRIT 38.4 % (36.0-47.0); MEAN CORPUSCULAR HEMOGLOBIN 29.7 pg (27.0-33.0); MEAN CORPUSCULAR HGB CONC 33.9 g/dl (32.0-36.5); MEAN CORPUSCULAR VOLUME 87.7 fl (80.0-96.0); MONO # 0.8 10^3/uL (0.0-0.8); MONO % 7.2 % (2.0-8.0); NEUTROPHILS # 7.4 10^3/uL (1.5-8.5); NEUTROPHILS % 69.7 % (36.0-66.0); PLATELET COUNT, AUTOMATED 227 10^3/uL (150-450); RED BLOOD COUNT 4.38 10^6/uL (4.00-5.40); WHITE BLOOD COUNT 10.6 10^3/uL (4.0-10.0)
[2022-05-19 21:14] LABS: HCG, SERUM QUALITATIVE NEGATIVE (NEGATIVE)
[2022-05-19 21:19] LABS: ALBUMIN 4.5 GM/DL (3.2-5.2); ALT/SGPT 20 U/L (12-78); BILIRUBIN,DIRECT 0.2 MG/DL (0.0-0.2); BILIRUBIN,TOTAL 0.5 MG/DL (0.2-1.0); BLOOD UREA NITROGEN 16 MG/DL (7-18); CALCIUM LEVEL 9.4 MG/DL (8.5-10.1); CARBON DIOXIDE LEVEL 27 MEQ/L (21-32); CHLORIDE LEVEL 106 MEQ/L (98-107); CREATININE FOR GFR 0.75 MG/DL (0.55-1.30); GLOMERULAR FILTRATION RATE > 60.0 (>60); GLUCOSE, FASTING 90 MG/DL (70-100); LIPASE 60 U/L (73-393); POTASSIUM SERUM 4.1 MEQ/L (3.5-5.1); SODIUM LEVEL 140 MEQ/L (136-145); TOTAL PROTEIN 7.6 GM/DL (6.4-8.2)
== END 2022-05-19 21:55 | disposition left against medical advice (07) ==
LOC: M ED 19:32
DX: Z53.21 Procedure and treatment not carried out due to patient leaving prior to being seen by health care provider (principal)

== ENCOUNTER → 2022-06-23 | Outpatient (REF) | payer OTHER ==
[~2022-06-23] MED LIST changes: +CELE1CAP9; +PANT40TA29
== END ==
LOC: M SFHCPLAZ 13:02
PROVIDERS: ATTEND Family Medicine
DX: D22.9 Melanocytic nevi, unspecified (principal)

== ENCOUNTER → 2023-06-15 | Outpatient (CLI) | payer OTHER ==
[2023-06-15 11:34] LABS: BASO # 0.1 10^3/uL (0.0-0.2); BASO % 1.1 % (0.0-1.0); EOS # 0.3 10^3/uL (0.0-0.5); EOS % 5.2 % (0.0-3.0); HEMATOCRIT 36.9 % (36.0-47.0); LYMPH # 1.9 10^3/uL (1.5-5.0); LYMPH % 29.4 % (24.0-44.0); MEAN CORPUSCULAR HEMOGLOBIN 29.7 pg (27.0-33.0); MEAN CORPUSCULAR HGB CONC 32.5 g/dl (32.0-36.5); MEAN CORPUSCULAR VOLUME 91.3 fl (80.0-96.0); MONO # 0.6 10^3/uL (0.0-0.8); MONO % 9.5 % (2.0-8.0); NEUTROPHILS # 3.6 10^3/uL (1.5-8.5); NEUTROPHILS % 54.6 % (36.0-66.0); PLATELET COUNT, AUTOMATED 177 10^3/uL (150-450); RED BLOOD COUNT 4.04 10^6/uL (4.00-5.40); WHITE BLOOD COUNT 6.6 10^3/uL (4.0-10.0)
[2023-06-15 11:53] LABS: THYROID STIMULATING HORMONE 0.942 uIU/ML (0.55-4.78)
[2023-06-15 11:54] LABS: FERRITIN 27.5 NG/ML (7.3-270.7)
[2023-06-15 11:55] LABS: FREE T4 0.94 NG/DL (0.89-1.76)
[2023-06-15 11:56] LABS: CHOLESTEROL RISK RATIO 2.87 (<5); HDL CHOLESTEROL 35.8 MG/DL (>40); LDL CHOLESTEROL 51.4 MG/DL (<100); NON-HDL-C 67.2 MG/DL
== END ==
LOC: M PLALAB 08:37
PROVIDERS: ATTEND Family Medicine
DX: R76.8 Other specified abnormal immunological findings in serum (principal); L65.9 Nonscarring hair loss, unspecified

== ENCOUNTER → 2023-06-22 | Outpatient (REF) | payer OTHER | LOC: M SFHCPLAZ 14:55 | PROVIDERS: ATTEND Family Medicine | DX: Z53.9 Procedure and treatment not carried out, unspecified reason (principal) ==

== ENCOUNTER → 2024-03-03 | Outpatient (REF) | payer OTHER ==
[~2024-03-03] MED LIST changes: +CELE0.09; -CELE1CAP9
== END ==
LOC: M SFHCPLAZ 16:36
PROVIDERS: ATTEND Family Medicine
DX: D50.9 Iron deficiency anemia, unspecified (principal); E53.8 Deficiency of other specified B group vitamins; R76.8 Other specified abnormal immunological findings in serum

== ENCOUNTER → 2024-03-09 | Outpatient (CLI) | payer OTHER ==
[2024-03-09 10:38] LABS: ERYTHROCYTE SEDIMENTATION RATE 2 mm/hr (0-20)
[2024-03-09 10:41] LABS: BASO # 0.1 10^3/uL (0.0-0.2); BASO % 1.1 % (0.0-1.0); EOS # 0.3 10^3/uL (0.0-0.5); EOS % 5.4 % (0.0-3.0); HEMATOCRIT 36.6 % (36.0-47.0); HEMOGLOBIN 12.3 g/dl (12.0-15.5); LYMPH # 1.8 10^3/uL (1.5-5.0); LYMPH % 33.6 % (24.0-44.0); MEAN CORPUSCULAR HEMOGLOBIN 30.4 pg (27.0-33.0); MEAN CORPUSCULAR HGB CONC 33.6 g/dl (32.0-36.5); MEAN CORPUSCULAR VOLUME 90.4 fl (80.0-96.0); MONO # 0.4 10^3/uL (0.0-0.8); MONO % 7.9 % (2.0-8.0); NEUTROPHILS # 2.8 10^3/uL (1.5-8.5); NEUTROPHILS % 51.6 % (36.0-66.0); PLATELET COUNT, AUTOMATED 185 10^3/uL (150-450); RED BLOOD COUNT 4.05 10^6/uL (4.00-5.40); WHITE BLOOD COUNT 5.3 10^3/uL (4.0-10.0)
[2024-03-09 10:56] LABS: C REACTIVE PROTEIN QUANTITATIV < 0.40 MG/DL (<1.0)
[2024-03-09 10:57] LABS: CPK CREATINE PHOSPHOKINASE 154 U/L (34-145)
[2024-03-09 10:59] LABS: FERRITIN 22.6 NG/ML (7.3-270.7)
== END ==
LOC: M LAB 09:41
PROVIDERS: ATTEND Family Medicine
DX: R76.8 Other specified abnormal immunological findings in serum (principal); D50.9 Iron deficiency anemia, unspecified; E53.8 Deficiency of other specified B group vitamins

== ENCOUNTER 2024-05-17 13:48 | Emergency (ER) | payer OTHER ==
[~2024-05-17] VITALS: Ht 160 cm; Wt 60.3 kg
[2024-05-17 16:08] VITALS: BP 99/59; TEMP 97.6; O2SAT 99
[2024-05-17] MEDS: METOCLOPRAMIDE INJ 10MG/2ML VIAL IV ONE (16:16)
[2024-05-17] MEDS: KETOROLAC 30 MG/ML 1ML VIAL IV ONE (16:16)
[2024-05-17] MEDS: ACETAMINOPHEN 500 MG TAB PO ONE (16:16)
[2024-05-17] MEDS: diphenhydrAMINE 50MG/ML VIAL IV ONE (16:16)
[2024-05-17] MEDS: NS 1,000 ML IV ONE (16:17)
[2024-05-17 16:35] LABS: HEMATOCRIT 35.7 % (36.0-47.0); HEMOGLOBIN 12.2 g/dl (12.0-15.5); MEAN CORPUSCULAR HEMOGLOBIN 29.8 pg (27.0-33.0); MEAN CORPUSCULAR HGB CONC 34.2 g/dl (32.0-36.5); MEAN CORPUSCULAR VOLUME 87.1 fl (80.0-96.0); PLATELET COUNT, AUTOMATED 209 10^3/uL (150-450); WHITE BLOOD COUNT 8.3 10^3/uL (4.0-10.0)
[2024-05-17 16:41] LABS: ERYTHROCYTE SEDIMENTATION RATE 5 mm/hr (0-20)
[2024-05-17 17:02] LABS: C REACTIVE PROTEIN QUANTITATIV < 0.40 MG/DL (<1.0)
[2024-05-17 17:04] LABS: BLOOD UREA NITROGEN 11 MG/DL (9-23); CALCIUM LEVEL 9.6 MG/DL (8.5-10.1); CARBON DIOXIDE LEVEL 24 MMOL/L (20-31); CHLORIDE LEVEL 108 MMOL/L (98-107); CREATININE FOR GFR 0.73 MG/DL (0.55-1.30); GLOMERULAR FILTRATION RATE > 60.0 (>60); GLUCOSE, FASTING 81 MG/DL (60-100); MAGNESIUM LEVEL 2.2 MG/DL (1.8-2.4); POTASSIUM SERUM 3.9 MMOL/L (3.5-5.1); SODIUM LEVEL 138 MMOL/L (136-145)
[2024-05-17 17:06] LABS: FREE T4 1.09 NG/DL (0.89-1.76); THYROID STIMULATING HORMONE 1.585 uIU/ML (0.55-4.78)
== END 2024-05-17 18:39 | disposition home or self-care (01) ==
LOC: M ED 13:48
DX: G44.221 Chronic tension-type headache, intractable (principal); Q07.00 Arnold-Chiari syndrome without spina bifida or hydrocephalus; F12.10 Cannabis abuse, uncomplicated; F10.10 Alcohol abuse, uncomplicated; Z79.1 Long term (current) use of non-steroidal anti-inflammatories (NSAID); Z79.899 Other long term (current) drug therapy
CPT/HCPCS: 70450; 80048; 83735; 84439; 84443; 85027; 85652; 86140; 96374; 99284; J1200; J1885; J2765

== ENCOUNTER → 2024-05-24 | Outpatient (REF) | payer OTHER | LOC: M SFHCPLAZ 19:09 | PROVIDERS: ATTEND Family Medicine | DX: R76.8 Other specified abnormal immunological findings in serum (principal); D50.9 Iron deficiency anemia, unspecified; R07.9 Chest pain, unspecified ==

== ENCOUNTER → 2024-05-25 | Outpatient (CLI) | payer OTHER | LOC: M PLAIMG 16:52 | PROVIDERS: ATTEND Family Medicine | DX: M47.812 Spondylosis without myelopathy or radiculopathy, cervical region (principal) ==

== ENCOUNTER → 2024-05-30 | Outpatient (CLI) | payer OTHER ==
[2024-05-30 09:42] LABS: BASO # 0.1 10^3/uL (0.0-0.2); BASO % 0.9 % (0.0-1.0); EOS # 0.4 10^3/uL (0.0-0.5); EOS % 5.8 % (0.0-3.0); HEMATOCRIT 38.4 % (36.0-47.0); HEMOGLOBIN 12.7 g/dl (12.0-15.5); LYMPH # 1.6 10^3/uL (1.5-5.0); LYMPH % 22.4 % (24.0-44.0); MEAN CORPUSCULAR HGB CONC 33.1 g/dl (32.0-36.5); MEAN CORPUSCULAR VOLUME 90.8 fl (80.0-96.0); MONO # 0.5 10^3/uL (0.0-0.8); MONO % 7.3 % (2.0-8.0); NEUTROPHILS # 4.4 10^3/uL (1.5-8.5); NEUTROPHILS % 63.3 % (36.0-66.0); PLATELET COUNT, AUTOMATED 203 10^3/uL (150-450); RED BLOOD COUNT 4.23 10^6/uL (4.00-5.40)
[2024-05-30 09:58] LABS: ERYTHROCYTE SEDIMENTATION RATE 4 mm/hr (0-20)
[2024-05-30 10:03] LABS: C REACTIVE PROTEIN QUANTITATIV < 0.40 MG/DL (<1.0)
[2024-05-30 10:07] LABS: FERRITIN 20.4 NG/ML (7.3-270.7)
== END ==
LOC: M LAB 07:36
PROVIDERS: ATTEND Family Medicine
DX: R76.8 Other specified abnormal immunological findings in serum (principal); D50.9 Iron deficiency anemia, unspecified; R07.9 Chest pain, unspecified

== ENCOUNTER → 2024-06-07 | Outpatient (CLI) | payer OTHER | LOC: M PLAIMG 07:06 | PROVIDERS: ATTEND Family Medicine | DX: Q07.00 Arnold-Chiari syndrome without spina bifida or hydrocephalus (principal) ==

== ENCOUNTER → 2024-06-09 | Outpatient (REF) | payer OTHER | LOC: M SFHCPLAZ 14:21 | PROVIDERS: ATTEND Family Medicine | DX: R76.8 Other specified abnormal immunological findings in serum (principal); D50.9 Iron deficiency anemia, unspecified ==

== ENCOUNTER → 2024-12-19 | Outpatient (CLI) | payer OTHER ==
[2024-12-19 09:26] LABS: BASO # 0.1 10^3/uL (0.0-0.2); BASO % 0.8 % (0.0-1.0); EOS # 0.4 10^3/uL (0.0-0.5); EOS % 4.9 % (0.0-3.0); HEMATOCRIT 39.9 % (36.0-47.0); HEMOGLOBIN 13.1 g/dl (12.0-15.5); LYMPH # 1.8 10^3/uL (1.5-5.0); LYMPH % 24.2 % (24.0-44.0); MEAN CORPUSCULAR HEMOGLOBIN 28.8 pg (27.0-33.0); MEAN CORPUSCULAR HGB CONC 32.8 g/dl (32.0-36.5); MEAN CORPUSCULAR VOLUME 87.7 fl (80.0-96.0); MONO # 0.6 10^3/uL (0.0-0.8); MONO % 7.9 % (2.0-8.0); NEUTROPHILS # 4.6 10^3/uL (1.5-8.5); NEUTROPHILS % 61.9 % (36.0-66.0); PLATELET COUNT, AUTOMATED 191 10^3/uL (150-450); RED BLOOD COUNT 4.55 10^6/uL (4.00-5.40); WHITE BLOOD COUNT 7.4 10^3/uL (4.0-10.0)
[2024-12-19 09:52] LABS: ALBUMIN 4.3 G/DL (3.2-5.2); ALKALINE PHOSPHATASE 53 U/L (35-104); ALT/SGPT 15 U/L (7.0-40); AST/SGOT 15 U/L (<34); BILIRUBIN,TOTAL 0.3 MG/DL (0.3-1.2); BLOOD UREA NITROGEN 18 MG/DL (9-23); CALCIUM LEVEL 9.1 MG/DL (8.5-10.1); CARBON DIOXIDE LEVEL 26 MMOL/L (20-31); CHLORIDE LEVEL 107 MMOL/L (98-107); CREATININE FOR GFR 0.75 MG/DL (0.55-1.30); GLOMERULAR FILTRATION RATE > 60.0 (>60); GLUCOSE, FASTING 107 MG/DL (60-100); SODIUM LEVEL 142 MMOL/L (136-145); TOTAL PROTEIN 7.3 G/DL (5.7-8.2)
[2024-12-19 09:53] LABS: COMPLEMENT C3 100.8 MG/DL (84.0-160.0); COMPLEMENT C4 19.5 MG/DL (12-36)
[2024-12-19 09:54] LABS: FERRITIN 26.5 NG/ML (7.3-270.7); VITAMIN B12 LEVEL 640 PG/ML (211-911)
[2024-12-20 15:02] LABS: ANA PATTERN Nuclear, Nucleolar (NEGATIVE); ANA SCREEN, IFA POSITIVE (NEGATIVE)
== END ==
LOC: M LAB 08:06
PROVIDERS: ATTEND Family Medicine
DX: D50.9 Iron deficiency anemia, unspecified (principal); E53.8 Deficiency of other specified B group vitamins; G43.009 Migraine without aura, not intractable, without status migrainosus; R76.8 Other specified abnormal immunological findings in serum

== ENCOUNTER → 2025-07-28 | Outpatient (CLI) | payer OTHER | LOC: M PLARAD 13:20 | PROVIDERS: ATTEND Family Medicine | DX: Q07.00 Arnold-Chiari syndrome without spina bifida or hydrocephalus (principal) ==

== ENCOUNTER → 2025-09-20 | Outpatient (CLI) | payer OTHER ==
[2025-09-20 12:17] LABS: BASO # 0.1 10^3/uL (0.0-0.2); BASO % 0.8 % (0.0-1.0); EOS # 0.3 10^3/uL (0.0-0.5); EOS % 5.2 % (0.0-3.0); LYMPH # 1.8 10^3/uL (1.5-5.0); LYMPH % 30.3 % (24.0-44.0); MONO # 0.5 10^3/uL (0.0-0.8); MONO % 8.5 % (2.0-8.0); NEUTROPHILS # 3.3 10^3/uL (1.5-8.5); NEUTROPHILS % 55.0 % (36.0-66.0); PLATELET COUNT, AUTOMATED 199 10^3/uL (150-450)
[2025-09-20 12:20] LABS: APPEARANCE, URINE CLEAR (CLEAR); BACTERIA, URINE AUTO NEGATIVE (NEGATIVE); BILIRUBIN, URINE AUTO NEGATIVE (NEGATIVE); BLOOD, URINE BLOOD NEGATIVE (NEGATIVE); GLUCOSE, URINE (UA) AUTO NEGATIVE (NEGATIVE); KETONE, URINE AUTO NEGATIVE (NEGATIVE); LEUKOCYTE ESTERASE, URINE AUTO NEGATIVE (NEGATIVE); MUCUS, URINE SMALL (NEGATIVE); NITRITE, URINE AUTO NEGATIVE (NEGATIVE); PROTEIN, URINE AUTO NEGATIVE (NEGATIVE); RBC, URINE AUTO 0 /HPF (0-3); SPECIFIC GRAVITY URINE AUTO 1.018 (1.002-1.035); SQUAMOUS EPITHELIAL CELL UR AU 2 /HPF (0-6); UROBILINOGEN, URINE AUTO 0.2 mg/dL (0.0-2.0); WBC, URINE AUTO 0 /HPF (0-3)
[2025-09-20 12:53] LABS: FREE T4 1.10 NG/DL (0.89-1.76); LUTEINIZING HORMONE 1.2 mIU/ML
[2025-09-20 12:54] LABS: PROLACTIN 7.16 NG/ML
[2025-09-20 12:55] LABS: VITAMIN B12 LEVEL 542 PG/ML (211-911)
[2025-09-20 12:58] LABS: C REACTIVE PROTEIN QUANTITATIV < 0.50 MG/DL (<1.0)
[2025-09-20 13:02] LABS: ALT/SGPT 16 U/L (7.0-40); AST/SGOT 18 U/L (<34); CALCIUM LEVEL 8.8 MG/DL (8.5-10.1); CARBON DIOXIDE LEVEL 26 MMOL/L (20-31); CHLORIDE LEVEL 104 MMOL/L (98-107); CHOLESTEROL LEVEL 115 MG/DL (<200); CHOLESTEROL RISK RATIO 2.78 (<5); CREATININE FOR GFR 0.71 MG/DL (0.55-1.30); GLOMERULAR FILTRATION RATE > 90.0 (>60); LDL CHOLESTEROL 65.5 MG/DL (<100); NON-HDL-C 73.7 MG/DL; POTASSIUM SERUM 4.1 MMOL/L (3.5-5.1); SODIUM LEVEL 141 MMOL/L (136-145); TRIGLYCERIDES LEVEL 41 MG/DL (<150)
== END ==
LOC: M WUC 09:21
PROVIDERS: ATTEND Family Medicine
DX: D50.9 Iron deficiency anemia, unspecified (principal); G43.909 Migraine, unspecified, not intractable, without status migrainosus; M35.9 Systemic involvement of connective tissue, unspecified; E53.8 Deficiency of other specified B group vitamins; N93.9 Abnormal uterine and vaginal bleeding, unspecified

== ENCOUNTER → 2025-09-21 | Outpatient (REF) | payer OTHER | LOC: M LABWUC 12:32 | PROVIDERS: ATTEND Family Medicine | DX: E53.9 Vitamin B deficiency, unspecified (principal); D50.9 Iron deficiency anemia, unspecified ==